=== PATIENT | male | born 1965 | race Caucasian/White ===

== ENCOUNTER 2021-08-28 17:43 | Emergency (ER) | payer SELFPAY ==
--- NOTE | 2021-08-28 | CTR_ITS ---
PROCEDURE INFORMATION: Exam: CT Cervical Spine Without Contrast Exam date and time: 08/28/2021 5:57 PM Age: 56 years old Clinical indication: Injury or trauma; Fall; Blunt trauma TECHNIQUE: Imaging protocol: Computed tomography images of the cervical spine without contrast. Radiation optimization: All CT scans at this facility use at least one of these dose optimization techniques: automated exposure control; mA and/or kV adjustment per patient size (includes targeted exams where dose is matched to clinical indication); or iterative reconstruction. COMPARISON: CT head wo con* [id number] 08/28/2021 5:54 PM RADIATION DOSE METRICS: Total DLP (mGy-cm): 566.48 FINDINGS: Bones/joints: No acute fracture. Normal alignment. Discs/Spinal canal/Neural foramina: No significant disc protrusion. No severe spinal canal stenosis. No significant neural foraminal narrowing. Lungs: Lung apices are normal. Soft tissues: Unremarkable. CT/CT cervical spin wo con* [id number] IMPRESSION: No acute findings. Radiation Dose CTDIVOL = (mGy): DLP = 566.48 (mGy-cm)
--- NOTE | 2021-08-28 17:51 | CTR_ITS ---
PROCEDURE INFORMATION: Exam: CT Head Without Contrast Exam date and time: 08/28/2021 5:51 PM Age: 56 years old Clinical indication: Injury or trauma; Blunt trauma (contusions or hematomas); Injury details: Fall off ladder. Hematoma to RT side of TECHNIQUE: Imaging protocol: Computed tomography of the head without contrast. Radiation optimization: All CT scans at this facility use at least one of these dose optimization techniques: automated exposure control; mA and/or kV adjustment per patient size (includes targeted exams where dose is matched to clinical indication); or iterative reconstruction. COMPARISON: No relevant prior studies available. RADIATION DOSE METRICS: Total DLP (mGy-cm): 820.34 FINDINGS: Brain: Questionable trace subarachnoid hemorrhage versus artifact from a vessel located in the posterior right frontal lobe as best noted on series 601, image 18 and series 602, image 27. Otherwise no evidence of hemorrhage. Unremarkable white matter. No mass effect. Cerebral ventricles: No ventriculomegaly. Paranasal sinuses: Mucosal thickening of the ethmoid sinuses. Mastoid air cells: Visualized mastoid air cells are well aerated. Bones/joints: Unremarkable. No acute fracture. Soft tissues: Hematoma along the right lateral frontal scalp. CT/CT head wo con* [id number] IMPRESSION: Questionable trace subarachnoid hemorrhage in the posterior right frontal lobe versus artifact from a vessel. This can be re-evaluated with short-term follow-up CT or MRI. Radiation Dose CTDIVOL = (mGy): DLP = 820.34 (mGy-cm)
--- NOTE | 2021-08-28 17:51 | XRR_ITS ---
PROCEDURE INFORMATION: Exam: XR Pelvis Exam date and time: 08/28/2021 5:51 PM Age: 56 years old Clinical indication: Injury or trauma; Fall; Blunt trauma (contusions or hematomas); Does not apply; Pelvic region; Patient HX: PT unresponsive TECHNIQUE: Imaging protocol: XR pelvis. Views: 1 or 2 view. Total images: 1 COMPARISON: CT angio chest abdomen pelvis 08/28/2021 6:00 PM FINDINGS: Bones/joints: Unremarkable. No acute fracture. Soft tissues: Unremarkable. XR/XR pelvis 1-2V* [id number] IMPRESSION: No acute findings. Radiation Dose CTDIVOL = (mGy): DLP = (mGy-cm)
--- NOTE | 2021-08-28 17:51 | CTR_ITS ---
PROCEDURE INFORMATION: Exam: CT Angiography Head With Contrast, Arteriography Exam date and time: 08/28/2021 5:51 PM Age: 56 years old Clinical indication: Injury or trauma; Fall; Blunt trauma; Head and neck TECHNIQUE: Imaging protocol: Computed tomography angiography of the head with contrast. Exam focused on the arteries. 3D rendering (Not supervised by radiologist): MIP and/or 3D reconstructed images were created by the technologist. Radiation optimization: All CT scans at this facility use at least one of these dose optimization techniques: automated exposure control; mA and/or kV adjustment per patient size (includes targeted exams where dose is matched to clinical indication); or iterative reconstruction. Contrast material: VISI 320; Contrast volume: 95 ml; Contrast route: INTRAVENOUS (IV); COMPARISON: CT head wo con* [id number] 08/28/2021 5:54 PM RADIATION DOSE METRICS: Total DLP (mGy-cm): 2218.22 FINDINGS: ANTERIOR CIRCULATION: Right internal carotid artery: Unremarkable. Intracranial segment is patent with no significant stenosis. No aneurysm. Right middle cerebral artery: Unremarkable. No occlusion or significant stenosis. No aneurysm. Right anterior cerebral artery: Unremarkable. No occlusion or significant stenosis. No aneurysm. Left internal carotid artery: Unremarkable. Intracranial segment is patent with no significant stenosis. No aneurysm. Left middle cerebral artery: Unremarkable. No occlusion or significant stenosis. No aneurysm. Left anterior cerebral artery: Unremarkable. No occlusion or significant stenosis. No aneurysm. POSTERIOR CIRCULATION: Right vertebral artery: Unremarkable. No occlusion or significant stenosis. No aneurysm. Left vertebral artery: Unremarkable. No occlusion or significant stenosis. No aneurysm. Basilar artery: Unremarkable. No occlusion or significant stenosis. No aneurysm. Right posterior cerebral artery: Unremarkable. No occlusion or significant stenosis. No aneurysm. Left posterior cerebral artery: Unremarkable. No occlusion or significant stenosis. No aneurysm. Brain: No definite mass, mass effect, or midline shift. The subarachnoid hemorrhage suspected on the prior noncontrast CT scan of brain is not seen on the study due to the use of intravenous contrast. Cerebral ventricles: No ventriculomegaly. Bones/joints: Unremarkable. No acute fracture. Soft tissues: There is focal scalp contusion right frontal and supraorbital region as seen on prior CT brain. Incidental note is made of a soft tissue nodule or cyst involving the left ear lobe. IMPRESSION: No large vessel stenosis or occlusion. PROCEDURE INFORMATION: Exam: CT Angiography Neck With Contrast Exam date and time: 08/28/2021 5:51 PM Age: 56 years old Clinical indication: Injury or trauma; Fall; Blunt trauma; Head and neck TECHNIQUE: Imaging protocol: Computed tomography angiography of the neck with contrast. 3D rendering (Not supervised by radiologist): MIP and/or 3D reconstructed images were created by the technologist. Radiation optimization: All CT scans at this facility use at least one of these dose optimization techniques: automated exposure control; mA and/or kV adjustment per patient size (includes targeted exams where dose is matched to clinical indication); or iterative reconstruction. Contrast material: VISI 320; Contrast volume: 95 ml; Contrast route: INTRAVENOUS (IV); COMPARISON: CT head wo con* [id number] 08/28/2021 5:54 PM RADIATION DOSE METRICS: Total DLP (mGy-cm): 2218.22 FINDINGS: Tubes, catheters and devices: Endotracheal tube is in place with its tip approximately 1 cm above the deep. Right common carotid artery: No stenosis. No dissection or occlusion. Right internal carotid artery: No stenosis of the extracranial segment. No dissection or occlusion. Right external carotid artery: No occlusion or stenosis of the origin. Left common carotid artery: No stenosis. No dissection or occlusion. Left internal carotid artery: No stenosis of the extracranial segment. No dissection or occlusion. Left external carotid artery: No occlusion or stenosis of the origin. Right vertebral artery: No stenosis. No dissection or occlusion. Left vertebral artery: No stenosis. No dissection or occlusion. Soft tissues: Normal. No significant soft tissue swelling. Bones/joints: Degenerative changes at C6-C7. No acute fracture. Lungs: There is calcified granuloma in the right upper lobe. CT/CT angio headneck* [id number] IMPRESSION: 1. There is no evidence of significant stenosis or occlusion carotid or vertebral arteries on either side of the neck 2. Low position of endotracheal tube REFERENCES: NASCET CRITERIA. The degree of internal carotid artery stenosis is based on NASCET criteria. Normal is no stenosis. Mild is less than 50% stenosis. Moderate is 50-69% stenosis. Severe is 70% to 99% stenosis. Total occlusion is no detectable patent lumen. Radiation Dose CTDIVOL = (mGy): DLP = 2218.22~2218.22 (mGy-cm)
--- NOTE | 2021-08-28 17:51 | CTR_ITS ---
PROCEDURE INFORMATION: Exam: CTA Abdomen and Pelvis With Contrast Exam date and time: 08/28/2021 5:51 PM Age: 56 years old Clinical indication: Injury or trauma; Fall; Blunt trauma TECHNIQUE: Imaging protocol: Computed tomographic angiography of the abdomen and pelvis with contrast material. 3D rendering (Not supervised by radiologist): MIP and/or 3D reconstructed images were created by the technologist. Radiation optimization: All CT scans at this facility use at least one of these dose optimization techniques: automated exposure control; mA and/or kV adjustment per patient size (includes targeted exams where dose is matched to clinical indication); or iterative reconstruction. Contrast material: VISI 320; Contrast volume: 95 ml; Contrast route: INTRAVENOUS (IV); COMPARISON: No relevant prior studies available. RADIATION DOSE METRICS: Total DLP (mGy-cm): 2214.77 FINDINGS: Aorta: No aortic aneurysm. No aortic dissection. Celiac trunk and mesenteric arteries: No occlusion or significant stenosis. Renal arteries: No occlusion or significant stenosis. Right iliac arteries: No occlusion or significant stenosis. Left iliac arteries: No occlusion or significant stenosis. Liver: No mass. Gallbladder and bile ducts: Unremarkable. No calcified stones. No ductal dilation. Pancreas: Unremarkable. No mass. No ductal dilation. Spleen: Unremarkable. No splenomegaly. Adrenal glands: Unremarkable. No mass. Kidneys and ureters: Unremarkable. No solid mass. No hydronephrosis. Stomach and bowel: Unremarkable. No obstruction. No mucosal thickening. Appendix: No evidence of appendicitis. Intraperitoneal space: Unremarkable. No free air. No significant fluid collection. Lymph nodes: Unremarkable. No enlarged lymph nodes. Urinary bladder: Unremarkable. No mass. Reproductive: Unremarkable as visualized. Bones/joints: No acute fracture. No dislocation. Soft tissues: Unremarkable. CT/CT angio chest abdomen pelvis IMPRESSION: No acute traumatic intra-abdominal findings. Radiation Dose CTDIVOL = (mGy): DLP = 2214.77 (mGy-cm)
[2021-08-28 17:55] VITALS: BP 161/85; PULSE 78; O2SAT 97; BMI 25.8
--- NOTE | 2021-08-28 17:56 | XRR_ITS ---
PROCEDURE INFORMATION: Exam: XR Chest Exam date and time: 08/28/2021 5:56 PM Age: 56 years old Clinical indication: Device placement; Ett placement (vent status); Patient HX: Unresponsive, post intubation; Additional info: Post-intubation TECHNIQUE: Imaging protocol: XR of the chest. Views: 1 view. COMPARISON: CT cervical spin wo con* [id number] 08/28/2021 5:57 PM FINDINGS: Tubes, catheters and devices: Endotracheal tube terminates 1 cm above the deep. Lungs: Unremarkable. No consolidation. Pleural spaces: Unremarkable. No pleural effusion. No pneumothorax. Heart/Mediastinum: Unremarkable. No cardiomegaly. Bones/joints: Unremarkable. XR/XR chest 1V portable [id number] IMPRESSION: Endotracheal tube terminates 1 cm above the deep. Radiation Dose CTDIVOL = (mGy): DLP = (mGy-cm)
[2021-08-28 18:00] LABS: Basophils # 0.1 10^3/uL (0.0-0.1); Basophils % 0.8 %; Eosinophils # 0.5 10^3/uL (0.0-0.8); Eosinophils % 7.1 %; Hematocrit 43.8 % (42.0-52.0); Hemoglobin 14.8 g/dL (11.7-16.6); Lymphocytes # 2.3 10^3/uL (0.8-4.8); Lymphocytes % 35.4 %; Mean Corpuscular HGB Conc 33.8 g/dL (30.0-36.0); Mean Corpuscular Hemoglobin 29.7 pg (28.0-34.0); Mean Platelet Volume 9.8 fL (7.4-10.4); Monocytes # 0.4 10^3/uL (0.2-0.9); Monocytes % 5.9 %; Neutrophils # 3.26 10^3/uL (1.8-7.7); Neutrophils % 50.3 %; Nucleated Red Blood Cells % 0 %; Platelet Count 303 10^3/cmm (130-400); Red Blood Count 4.98 10^6/uL (4.1-5.3); Red Cell Distribution Width 12.2 % (12.1-15.1); White Blood Count 6.5 10^3/uL (4.0-10.0)
[2021-08-28] MEDS: vecuronium 10 mg SDV IVP (18:04)
--- NOTE | 2021-08-28 18:05 | PC.NURSE ---
Addendum entered by Aris Huston RN 08/28/21 18:07: pt roommate mike calero [id number] Original Note: pt brought to ed by POV pt confused falling to right side pt combative unresponsive to painful stimuli or commands. eyes [place] non reactive pt straight to room 11 with c collar
[2021-08-28] MEDS: iodixanol 320 mg/mL 100mL Btl IV ×2 (18:08→18:10)
[2021-08-28 18:14] LABS: INR 0.94 (0.8-1.2)
[2021-08-28 18:15] LABS: Partial Thromboplastin Time 25.5 SECONDS (23.9-36.7)
[2021-08-28 18:28] LABS: Alcohol Level 197 mg/dL (0-10); Anion Gap 18.5 (5-19); Blood Urea Nitrogen 5 mg/dL (6-20); Calcium 9.6 mg/dL (8.5-10.5); Carbon Dioxide 25 mmol/L (22-29); Chloride 100 mmol/L (98-107); Glomerular Filtration Rate 117.1 mL/min (90-130); Glucose 81 mg/dL (65-115); Osmolality Calculated 286 mOsm/kg (285-295); Potassium 3.5 mmol/L (3.5-5.1); Sodium 140 mmol/L (136-145)
[2021-08-28 18:28] LABS: ABG PCO2 49.3 mmHg (35-45); ABG PH Result 7.37 (7.35-7.45); Arterial Blood Gas Hematocrit 43.3 % (42-52); Blood Gas Allen Test Pos; Blood Gas Sample Site Radial, right; Blood Gas Sample Type Arterial; HCO3 ABG 28.3 mmol/L (22-26)
[2021-08-28 18:29] LABS: Oxygen Device AMBU
[2021-08-28 18:30] LABS: Acetaminophen < 5.0 ug/mL (10-30); Salicylate < 0.3 mg/dL (3-10)
[2021-08-28 18:34] LABS: SARS Covid-2 Antigen Negative (Negative)
--- NOTE | 2021-08-28 18:45 | ED_ITS ---
HPI - General Adult General: Chief complaint: Fall Stated complaint: unresponsive Time Seen by Provider: 08/28/21 17:49 History of Present Illness: HPI narrative: Patient is a 56-year-old male with unknown past medical history presents the emergency room with altered mental status. Per patient's friend, patient was drinking whiskey at home when he fell from a ladder of unknown height. Patient since falling from a ladder has become weak on the right side and unresponsive. Patient was brought to the emergency for further evaluation. On arrival, patient was brushing, with unequal pupil. Patient was not moving his right side. Decision was made to immediately pain on arrival given concerns for brain bleed. Further questioning friend, patient was found to have new onset of right-sided weakness after the fall from ladder that was new. Patient was drinking alcohol prior to the fall. Onset: 1 hr ago Duration: 1 hr Location: home Severity:severe Review of Systems Narrative: UNABLE TO OBTAIN given AMS Physical Exam Narrative: EXAM NARRATIVE: Head: Atraumatic Eyes: PERRL, conjunctiva without injection, R>L ENT: Mucous membrane moist NECK: Supple, ROM intact LUNGS: LCTAB, no crackles/rhonchi CV: RRR ABDOMEN: Soft, nontender in all quadrants EXTREMITY: Normal ROM SKIN: No rash or erythema NEURO: Trashing and moving extremities, R sided weakness, GCS of 7 PSYCH: uable to assess Procedures Intubation Time out performed: Yes sedative: Etomidate Mg Given: 30 Mg Given: 10 Laryngoscope: Regan ET Tube Size: 7.5 ET Tube Uncuffed: Yes Tube Secured Depth (cm): 23 Tube Secured Location: lips Tube Placement Confirmation: visualized tube passing through cords Patient Tolerated Procedure: well Intubation Complications: none Course Vital Signs: Vital signs: Vital Signs Pulse Rate 78 08/28/21 17:55 Blood Pressure 161/85 08/28/21 17:55 Pulse Oximetry 97 08/28/21 17:55 MDM - General Adult MDM Narrative: Medical decision making narrative: Patient is a 56-year-old male emergency room with altered mental status after a fall while drinking alcohol. On exam, patient has a GCS of 8. Given trauma and new onset altered mental status despite drinking alcohol, decision was made to intubate for airway protection. CT is significant for possible right frontal subarachnoid hemorrhage. There is some movement cannot entirely rule out artifact. Is on a fentanyl and propofol drip. BP appears to be well controlled at 151/87. Sp saul 1g Case was discussed w/ Dr. Giordano from [facility] who agrees with the transfer Disposition: Transfer to outside hospital Lab Data: Labs: Lab Results 08/28/21 08/28/21 08/28/21 17:45 17:45 17:45 WBC 6.5 10^3/uL 10^3/ uL (4.0-10.0) RBC 4.98 10^6/uL 10^6 /uL (4.1-5.3) Hgb 14.8 g/dL g/dL (11.7-16.6) Hct 43.8 % % (42.0-52.0) MCV 88.0 fl fl (80-94) MCH 29.7 pg pg (28.0-34.0) MCHC 33.8 g/dL g/dL (30.0-36.0) RDW 12.2 % % (12.1-15.1) Plt Count 303 10^3/cmm 10^3 /cmm (130-400) MPV 9.8 fL fL (7.4-10.4) Neut % (Auto) 50.3 % % Lymph % (Auto) 35.4 % % Jones % (Auto) 5.9 % % Eos % (Auto) 7.1 % % Baso % (Auto) 0.8 % % Neut # (Auto) 3.26 10^3/uL 10^3 /uL (1.8-7.7) Lymph # (Auto) 2.3 10^3/uL 10^3/ uL (0.8-4.8) Jones # (Auto) 0.4 10^3/uL 10^3/ uL (0.2-0.9) Eos # (Auto) 0.5 10^3/uL 10^3/ uL (0.0-0.8) Baso # (Auto) 0.1 10^3/uL 10^3/ uL (0.0-0.1) Nucleated RBC % (a uto) 0 % % Nucleated RBCs # 0.0 /100WBC /100W BC PT 12.90 SECONDS SEC ONDS (12.1-14.9) INR 0.94 (0.8-1.2) APTT 25.5 SECONDS SECO NDS (23.9-36.7) Specimen Type Sample Site ABG pH ABG pCO2 ABG pO2 ABG HCO3 ABG Base Excess Willis Test Hematocrit O2 Delivery Device FiO2 [employer] ID Sodium 140 mmol/L mmol/L (136-145) Potassium 3.5 mmol/L mmol/L (3.5-5.1) Chloride 100 mmol/L mmol/L (98-107) Carbon Dioxide 25 mmol/L mmol/L (22-29) Anion Gap 18.5 (5-19) BUN 5 mg/dL L mg/dL (6-20) Creatinine 0.7 mg/dL mg/dL (0.7-1.2) GFR Calculation 117.1 mL/min mL/m in (90-130) Glucose 81 mg/dL mg/dL (65-115) Calculated Osmolal ity 286 mOsm/kg mOsm/ kg (285-295) Calcium 9.6 mg/dL mg/dL (8.5-10.5) Salicylates Acetaminophen Ethyl Alcohol SARS-CoV-2 Ag (Rap id) 08/28/21 08/28/21 08/28/21 17:45 17:50 18:16 WBC RBC Hgb Hct MCV MCH MCHC RDW Plt Count MPV Neut % (Auto) Lymph % (Auto) Jones % (Auto) Eos % (Auto) Baso % (Auto) Neut # (Auto) Lymph # (Auto) Jones # (Auto) Eos # (Auto) Baso # (Auto) Nucleated RBC % (a uto) Nucleated RBCs # PT INR APTT Specimen Type Arterial Sample Site Radial, right ABG pH 7.37 (7.35-7.45) ABG pCO2 49.3 mmHg H mmHg (35-45) ABG pO2 193.0 mmHg H mmHg (80.0-100.0) ABG HCO3 28.3 mmol/L H mmo l/L (22-26) ABG Base Excess 2.0 mmol/L mmol/L (-2.0-2.0) Willis Test Pos Hematocrit 43.3 % % (42-52) O2 Delivery Device Ambu FiO2 100.0 % % Director [employer] ID Hensa Sodium Potassium Chloride Carbon Dioxide Anion Gap BUN Creatinine GFR Calculation Glucose Calculated Osmolal ity Calcium Salicylates < 0.3 mg/dL L mg/ dL (3-10) Acetaminophen < 5.0 ug/mL L ug/ mL (10-30) Ethyl Alcohol 197 mg/dL H mg/dL (0-10) SARS-CoV-2 Ag (Rap id) Negative (Negative) Imaging Data^: Other Imaging: Radiologist's impression: [id number] [place], [place] [address]BNgl ReportSigned Patient: Ronit Anderson #: [id number]: 1965Acct#:[id number]/Sex: 56 / MADM Date: 08/28/21Loc: ERRoom/Bed:Attending Dr: Ordering Provider/Ordering MD: Ginna Finch MD Date of Service: 08/28/21 Procedure(s): XR chest 1V portable [id number] Accession Number(s): [id number] Report Number: [id number] PROCEDURE INFORMATION: Exam: XR Chest Exam date and time: 08/28/2021 5:56 PM Age: 56 years old Clinical indication: Device placement; Ett placement (vent status); Patient HX: Unresponsive, post intubation; Additional info: Post-intubation TECHNIQUE: Imaging protocol: XR of the chest. Views: 1 view. COMPARISON: CT cervical spin wo con* [id number] 08/28/2021 5:57 PM FINDINGS: Tubes, catheters and devices: Endotracheal tube terminates 1 cm above the deep. Lungs: Unremarkable. No consolidation. Pleural spaces: Unremarkable. No pleural effusion. No pneumothorax. Heart/Mediastinum: Unremarkable. No cardiomegaly. Bones/joints: Unremarkable. XR/XR chest 1V portable [id number] IMPRESSION: Endotracheal tube terminates 1 cm above the deep. Radiation Dose CTDIVOL = (mGy): DLP = (mGy-cm) Dictated By:Markos Estrada DOSigned By:Markos Estrada DOSigned Date/Time:08/28/21 1844DD/ [address] [address] Scan ReportSigned Patient: Ronit Anderson #: [id number]: 1965Acct#:[id number]/Sex: 56 / MADM Date: 08/28/21Loc: ERRoom/Bed:Attending Dr: Ordering Provider/Ordering MD: Ginna Finch MD Date of Service: 08/28/21 Procedure(s): CT angio headneck* [id number] Accession Number(s): [id number] Report Number: [id number] PROCEDURE INFORMATION: Exam: CT Angiography Head With Contrast, Arteriography Exam date and time: 08/28/2021 5:51 PM Age: 56 years old Clinical indication: Injury or trauma; Fall; Blunt trauma; Head and neck TECHNIQUE: Imaging protocol: Computed tomography angiography of the head with contrast. Exam focused on the arteries. 3D rendering (Not supervised by radiologist): MIP and/or 3D reconstructed images were created by the technologist. Radiation optimization: All CT scans at this facility use at least one of these dose optimization techniques: automated exposure control; mA and/or kV adjustment per patient size (includes targeted exams where dose is matched to clinical indication); or iterative reconstruction. Contrast material: VISI 320; Contrast volume: 95 ml; Contrast route: INTRAVENOUS (IV); COMPARISON: CT head wo con* [id number] 08/28/2021 5:54 PM RADIATION DOSE METRICS: Total DLP (mGy-cm): 2218.22 FINDINGS: ANTERIOR CIRCULATION: Right internal carotid artery: Unremarkable. Intracranial segment is patent with no significant stenosis. No aneurysm. Right middle cerebral artery: Unremarkable. No occlusion or significant stenosis. No aneurysm. Right anterior cerebral artery: Unremarkable. No occlusion or significant stenosis. No aneurysm. Left internal carotid artery: Unremarkable. Intracranial segment is patent with no significant stenosis. No aneurysm. Left middle cerebral artery: Unremarkable. No occlusion or significant stenosis. No aneurysm. Left anterior cerebral artery: Unremarkable. No occlusion or significant stenosis. No aneurysm. POSTERIOR CIRCULATION: Right vertebral artery: Unremarkable. No occlusion or significant stenosis. No aneurysm. Left vertebral artery: Unremarkable. No occlusion or significant stenosis. No aneurysm. Basilar artery: Unremarkable. No occlusion or significant stenosis. No aneurysm. Right posterior cerebral artery: Unremarkable. No occlusion or significant stenosis. No aneurysm. Left posterior cerebral artery: Unremarkable. No occlusion or significant stenosis. No aneurysm. Brain: No definite mass, mass effect, or midline shift. The subarachnoid hemorrhage suspected on the prior noncontrast CT scan of brain is not seen on the study due to the use of intravenous contrast. Cerebral ventricles: No ventriculomegaly. Bones/joints: Unremarkable. No acute fracture. Soft tissues: There is focal scalp contusion right frontal and supraorbital region as seen on prior CT brain. Incidental note is made of a soft tissue nodule or cyst involving the left ear lobe. IMPRESSION: No large vessel stenosis or occlusion. PROCEDURE INFORMATION: Exam: CT Angiography Neck With Contrast Exam date and time: 08/28/2021 5:51 PM Age: 56 years old Clinical indication: Injury or trauma; Fall; Blunt trauma; Head and neck TECHNIQUE: Imaging protocol: Computed tomography angiography of the neck with contrast. 3D rendering (Not supervised by radiologist): MIP and/or 3D reconstructed images were created by the technologist. Radiation optimization: All CT scans at this facility use at least one of these dose optimization techniques: automated exposure control; mA and/or kV adjustment per patient size (includes targeted exams where dose is matched to clinical indication); or iterative reconstruction. Contrast material: VISI 320; Contrast volume: 95 ml; Contrast route: INTRAVENOUS (IV); COMPARISON: CT head wo con* [id number] 08/28/2021 5:54 PM RADIATION DOSE METRICS: Total DLP (mGy-cm): 2218.22 FINDINGS: Tubes, catheters and devices: Endotracheal tube is in place with its tip approximately 1 cm above the deep. Right common carotid artery: No stenosis. No dissection or occlusion. Right internal carotid artery: No stenosis of the extracranial segment. No dissection or occlusion. Right external carotid artery: No occlusion or stenosis of the origin. Left common carotid artery: No stenosis. No dissection or occlusion. Left internal carotid artery: No stenosis of the extracranial segment. No dissection or occlusion. Left external carotid artery: No occlusion or stenosis of the origin. Right vertebral artery: No stenosis. No dissection or occlusion. Left vertebral artery: No stenosis. No dissection or occlusion. Soft tissues: Normal. No significant soft tissue swelling. Bones/joints: Degenerative changes at C6-C7. No acute fracture. Lungs: There is calcified granuloma in the right upper lobe. CT/CT angio headneck* [id number]/[id number] IMPRESSION: 1. There is no evidence of significant stenosis or occlusion carotid or vertebral arteries on either side of the neck 2. Low position of endotracheal tube REFERENCES: NASCET CRITERIA. The degree of internal carotid artery stenosis is based on NASCET criteria. Normal is no stenosis. Mild is less than 50% stenosis. Moderate is 50-69% stenosis. Severe is 70% to 99% stenosis. Total occlusion is no detectable patent lumen. Radiation Dose CTDIVOL = (mGy): DLP = 2218.22~2218.22 (mGy-cm) Dictated By:Norbert Rodriguezigned By:Norbert Rodriguezigned Date/Time:08/28/21 1848DD/ [address] [address]TH Scan ReportSigned with Addenda Patient: Ronit Anderson #: [id number]: 1965Acct#:[id number]/Sex: 56 / MADM Date: 08/28/21Loc: ERRoom/Bed:Attending Dr: Ordering Provider/Ordering MD: Ginna Finch MD Date of Service: 08/28/21 Procedure(s): CT head wo con* [id number] Accession Number(s): [id number] Report Number: [id number]/CT head wo con* [id number] Findings were discussed with GINNA FINCH at 08/28/2021 6:31 PM [employer]. Radiation Dose CTDIVOL = (mGy): DLP = 820.34 (mGy-cm) Addendum Dictated By: Markos Estrada DOAddendum Signed By: Markos Estrada DOSigned Date/Time:08/28/21 1834Addendum Cosigned By: PROCEDURE INFORMATION: Exam: CT Head Without Contrast Exam date and time: 08/28/2021 5:51 PM Age: 56 years old Clinical indication: Injury or trauma; Blunt trauma (contusions or hematomas); Injury details: Fall off ladder. Hematoma to RT side of TECHNIQUE: Imaging protocol: Computed tomography of the head without contrast. Radiation optimization: All CT scans at this facility use at least one of these dose optimization techniques: automated exposure control; mA and/or kV adjustment per patient size (includes targeted exams where dose is matched to clinical indication); or iterative reconstruction. COMPARISON: No relevant prior studies available. RADIATION DOSE METRICS: Total DLP (mGy-cm): 820.34 FINDINGS: Brain: Questionable trace subarachnoid hemorrhage versus artifact from a vessel located in the posterior right frontal lobe as best noted on series 601, image 18 and series 602, image 27. Otherwise no evidence of hemorrhage. Unremarkable white matter. No mass effect. Cerebral ventricles: No ventriculomegaly. Paranasal sinuses: Mucosal thickening of the ethmoid sinuses. Mastoid air cells: Visualized mastoid air cells are well aerated. Bones/joints: Unremarkable. No acute fracture. Soft tissues: Hematoma along the right lateral frontal scalp. CT/CT head wo con* [id number] IMPRESSION: Questionable trace subarachnoid hemorrhage in the posterior right frontal lobe versus artifact from a vessel. This can be re-evaluated with short-term follow-up CT or MRI. Radiation Dose CTDIVOL = (mGy): DLP = 820.34 (mGy-cm) Dictated By:Markos Estrada DOSigned By:Markos Estrada DOSigned Date/Time:08/28/21/ [address] [address] Scan ReportSigned Patient: Ronit Anderson #: [id number]: 1965Acct#:[id number]/Sex: 56 / MADM Date: 08/28/21Loc: ERRoom/Bed:Attending Dr: Ordering Provider/Ordering MD: Ginna Finch MD Date of Service: 08/28/21 Procedure(s): CT angio chest abdomen pelvis Accession Number(s): [id number] Report Number: [id number] PROCEDURE INFORMATION: Exam: CTA Abdomen and Pelvis With Contrast Exam date and time: 08/28/2021 5:51 PM Age: 56 years old Clinical indication: Injury or trauma; Fall; Blunt trauma TECHNIQUE: Imaging protocol: Computed tomographic angiography of the abdomen and pelvis with contrast material. 3D rendering (Not supervised by radiologist): MIP and/or 3D reconstructed images were created by the technologist. Radiation optimization: All CT scans at this facility use at least one of these dose optimization techniques: automated exposure control; mA and/or kV adjustment per patient size (includes targeted exams where dose is matched to clinical indication); or iterative reconstruction. Contrast material: VISI 320; Contrast volume: 95 ml; Contrast route: INTRAVENOUS (IV); COMPARISON: No relevant prior studies available. RADIATION DOSE METRICS: Total DLP (mGy-cm): 2214.77 FINDINGS: Aorta: No aortic aneurysm. No aortic dissection. Celiac trunk and mesenteric arteries: No occlusion or significant stenosis. Renal arteries: No occlusion or significant stenosis. Right iliac arteries: No occlusion or significant stenosis. Left iliac arteries: No occlusion or significant stenosis. Liver: No mass. Gallbladder and bile ducts: Unremarkable. No calcified stones. No ductal dilation. Pancreas: Unremarkable. No mass. No ductal dilation. Spleen: Unremarkable. No splenomegaly. Adrenal glands: Unremarkable. No mass. Kidneys and ureters: Unremarkable. No solid mass. No hydronephrosis. Stomach and bowel: Unremarkable. No obstruction. No mucosal thickening. Appendix: No evidence of appendicitis. Intraperitoneal space: Unremarkable. No free air. No significant fluid collection. Lymph nodes: Unremarkable. No enlarged lymph nodes. Urinary bladder: Unremarkable. No mass. Reproductive: Unremarkable as visualized. Bones/joints: No acute fracture. No dislocation. Soft tissues: Unremarkable. CT/CT angio chest abdomen pelvis IMPRESSION: No acute traumatic intra-abdominal findings. Radiation Dose CTDIVOL = (mGy): DLP = 2214.77 (mGy-cm) Dictated By:Markos Estrada DOSigned By:Markos Estrada DOSigned Date/Time:08/28/21 1841DD/ [address] [address] Scan ReportSigned Patient: Ronit Anderson #: [id number]: 1965Acct#:[id number]/Sex: 56 / MADM Date: 08/28/21Loc: ERRoom/Bed:Attending Dr: Ordering Provider/Ordering MD: Ginna Finch MD Date of Service: 08/28/21 Procedure(s): CT cervical spin wo con* [id number] Accession Number(s): [id number] Report Number: [id number] PROCEDURE INFORMATION: Exam: CT Cervical Spine Without Contrast Exam date and time: 08/28/2021 5:57 PM Age: 56 years old Clinical indication: Injury or trauma; Fall; Blunt trauma TECHNIQUE: Imaging protocol: Computed tomography images of the cervical spine without contrast. Radiation optimization: All CT scans at this facility use at least one of these dose optimization techniques: automated exposure control; mA and/or kV adjustment per patient size (includes targeted exams where dose is matched to clinical indication); or iterative reconstruction. COMPARISON: CT head wo con* [id number] 08/28/2021 5:54 PM RADIATION DOSE METRICS: Total DLP (mGy-cm): 566.48 FINDINGS: Bones/joints: No acute fracture. Normal alignment. Discs/Spinal canal/Neural foramina: No significant disc protrusion. No severe spinal canal stenosis. No significant neural foraminal narrowing. Lungs: Lung apices are normal. Soft tissues: Unremarkable. CT/CT cervical spin wo con* [id number] IMPRESSION: No acute findings. Radiation Dose CTDIVOL = (mGy): DLP = 566.48 (mGy-cm) Dictated By:Markos Estrada DOSigned By:Markos Estrada DOSigned Date/Time:08/28/21 1821DD/ 56 Discharge Plan Discharge Patient Disposition: Transfer to ED Clinical Impression: Altered mental status, Subarachnoid bleed Condition: Stable Coding Level of Care Code ED [employer] for Hiren Nevarez
[2021-08-28 18:56] VITALS: BP 151/96; PULSE 77; RESP 22; O2SAT 100
[2021-08-28] MEDS: propofol 1,000 MG/100 ML INJ 20 MG IV (18:59)
[2021-08-28 19:02] VITALS: RESP 15
--- NOTE | 2021-08-28 19:20 | ECG_ITS ---
[facility] Test Date: 2021-08-28 Pat Name: Mazin Anderson Department: Room: Gender: Male [employer] Supervisor: : 1965 Requested By: Ginna Finch Order Number: [id number] Srikanth MD: Donato James M.D. Measurements Intervals [place] Rate: 92 P: 72 MI: 151 QRS: 100 QRSD: 97 T: 22 QT: 317 QTc: 393 Interpretive Statements SINUS RHYTHM BORDERLINE RIGHT AXIS DEVIATION [QRS AXIS > 90] NONSPECIFIC ST & T-WAVE ABNORMALITY No previous ECG available for comparison Electronically Signed On 08-28-2021 20:51:19 CALL PERSON by Donato James M.D. [email or web address]
--- NOTE | 2021-08-28 19:20 | XRR_ITS ---
PROCEDURE INFORMATION: Exam: XR Chest Exam date and time: 08/28/2021 7:20 PM Age: 56 years old Clinical indication: Device placement; Other: Og placement TECHNIQUE: Imaging protocol: XR of the chest. Views: 1 view. COMPARISON: CR (CHEST, ) 08/28/2021 6:24 PM FINDINGS: Tubes, catheters and devices: OG tube terminates in the stomach. Lungs: Unremarkable. No consolidation. Pleural spaces: Unremarkable. No pleural effusion. No pneumothorax. Heart/Mediastinum: Unremarkable. No cardiomegaly. Bones/joints: Unremarkable. XR/XR chest 1V portable [id number] IMPRESSION: OG tube terminates in the stomach. Radiation Dose CTDIVOL = (mGy): DLP = (mGy-cm)
[2021-08-28] MEDS: propofol 1,000 MG/100 ML INJ 9.8 MG IV (21:06)
== END 2021-08-28 19:56 ==
PROVIDERS: Emergency Provider Emergency Medicine
DX: S06.6X9A Traumatic subarachnoid hemorrhage with loss of consciousness of unspecified duration, initial encounter (principal); R40.2432 Glasgow coma scale score 3-8, at arrival to emergency department; W11.XXXA Fall on and from ladder, initial encounter; Y90.6 Blood alcohol level of 120-199 mg/100 ml
CPT/HCPCS: 31500; 36600; 51702; 70450; 70496; 70498; 71045; 71275; 72125; 72170; 74174; 80048; 80307; 82803; 85025; 85610; 85730; 87426; 93005; 94002; 94799; 96365; 96367; 99291; 99292; J1953; J2704; J3010; J3490; Q9967